=== PATIENT | male | born 1940 | race Caucasian/White ===

== ENCOUNTER → 2016-04-06 | Outpatient (CLI) | payer OTHER ==
[~2016-04-06] MED LIST: ALLO300T2 PO; AMLO-110 PO; ASPI81TA28 PO; ATEN-175 PO; DOCU-94 PO; DOXA-10 PO; FINA5TAB PO; HYDR-5688 PO; LACT10SO30 PO; LISI-787 PO; METF-383 PO; PRLSR20 PO; PSYL0.524 PO; SIMV5TAB2 PO; VNTHFA/IN INH; ZNTT/150 PO
== END | disposition home or self-care (01) ==
LOC: C.LABMFLN 10:00
PROVIDERS: ATTEND Family Medicine
DX: C61 Malignant neoplasm of prostate (principal)

== ENCOUNTER 2016-05-30 05:16 | Inpatient (IN) | payer OTHER ==
[2016-05-25 08:55] VITALS: BMI 27.0
[2016-05-30] VITALS (13 sets, daily range): BP systolic 123–151; BP diastolic 54–91; PULSE 62–93; TEMP 36.5–36.9; O2SAT 90–96; Ht 167.6 cm; Wt 76.4 kg
[~2016-05-30] VITALS: Ht 167.6 cm; Wt 76.4 kg
[~2016-05-30 05:16] MED LIST changes: -DOCU-94 PO; -HYDR-5688 PO
[2016-05-30] MEDS ORDERED: LACTATED RINGER'S 1000ML 1,000 ML IV SCH ×2 (06:00)
[2016-05-30] MEDS ORDERED: HEPARIN SOD 5000 UNIT/0.5 ML CARP SC SCH (06:00)
[2016-05-30] MEDS ORDERED: CEFAZOLIN 2000 MG/60 ML D5W IV SCH (06:00)
[2016-05-30] MEDS ORDERED: ONDANSETRON INJ 2 MG/ML 2 ML VIAL ONE (06:30)
[2016-05-30] MEDS ORDERED: FENTANYL CITRATE INJ 50 MCG/1 ML 2 ML VIAL ONE ×2 (06:30→07:30)
[2016-05-30] MEDS ORDERED: PROPOFOL IV EMULSION 10 MG/ML 20 ML VIAL IV ONE (06:30)
[2016-05-30] MEDS ORDERED: LIDOCAINE HCL 2% 2 ML VIAL (20MG/ML) ONE (06:30)
[2016-05-30] MEDS ORDERED: MIDAZOLAM HCL 1 MG/ML 2ML VIAL ONE (06:30)
[2016-05-30 06:43] LABS: BASO % 0.3 %; BASO ABS # 0.01 K/uL (0-0.2); IG% 0.3 %; LYMPH % 22.7 %; LYMPH ABS # 0.69 K/uL (1.2-3.4); MEAN CELL VOLUME 89.3 fL (80-100); MEAN CORPUSCULAR HEMOGLOBIN 29.8 pg (25-34); MEAN PLATELET VOLUME 8.8 fL (7.4-10.4); MONO % 11.5 %; NEUT % 63.2 %; PLATELET COUNT 126 K/uL (130-400); RED BLOOD COUNT 4.03 M/uL (4.7-6.1); WHITE BLOOD COUNT 3.04 K/uL (4.8-10.8)
[2016-05-30 06:46] LABS: COMPLETE YES; MEAN CORPUSCULAR HGB CONC 33.3 g/dl (32-36)
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
[2016-05-30] MEDS ORDERED: BUPIVACAINE/EPINEPHRINE 0.5% MPF 1:200,000 30 ML VIAL ONE (06:51)
[2016-05-30 07:05] LABS: CALCIUM 9.5 mg/dl (8.5-10.1); CREATININE 1.2 mg/dl (0.60-1.40); POTASSIUM 3.9 mmol/L (3.5-5.1)
[2016-05-30] MEDS ORDERED: ROCURONIUM BROMIDE 10 MG/ML 5 ML VIAL ONE (07:14)
[2016-05-30] MEDS ORDERED: GLYCOPYRROLATE INJ 0.2 MG/ML VIAL ONE (07:14)
[2016-05-30] MEDS ORDERED: NEOSTIGMINE METHYLSULFATE 5 MG/5 ML SYR ONE (07:14)
[2016-05-30] MEDS ORDERED: EpHEDrine SULFATE 50MG/5ML SYR ONE (07:14)
[2016-05-30] MEDS ORDERED: LARYING-O-JET KIT (LTA) EXT ONE ×2 (07:16)
[2016-05-30] MEDS ORDERED: METOPROLOL TARTRATE 1 MG/ML VIAL ONE (07:48)
[2016-05-30] MEDS ORDERED: HYDROmorphone INJ 1 MG/ML SYR IV PRN (08:00)
[2016-05-30] MEDS ORDERED: ONDANSETRON INJ 2 MG/ML 2 ML VIAL IV PRN (08:00)
[2016-05-30] MEDS ORDERED: EpHEDrine SULFATE INJ 50 MG/ML AMP IV PRN (08:00)
[2016-05-30] MEDS ORDERED: ATROPINE SULFATE 0.1 MG/ML 5ML SYR IV PRN (08:00)
[2016-05-30] MEDS ORDERED: DEXTROSE 50% 50 ML SYR IV PRN (08:45)
[2016-05-30] MEDS ORDERED: ALBUTEROL HFA 8 GM INHALER INH PRN (08:45)
[2016-05-30] MEDS ORDERED: GLUCAGON FOR INJ 1 MG VIAL SQ PRN (08:45)
[2016-05-30] MEDS ORDERED: MoRPHine SULFATE 2 MG/ML CARP IV PRN (08:45)
[2016-05-30] MEDS ORDERED: GLUCOSE 40% GEL 15 GM TUBE PO PRN (08:45)
[2016-05-30] MEDS ORDERED: GLUCOSE 10 TABS/TUBE PO PRN (08:45)
--- NOTE | 2016-05-30 08:50 | Medical Student: [facility] ---
Immediate Operative Summary Operative Date May 30, 2016. Pre-Operative Diagnosis R inguinal hernia Post-Operative Diagnosis Same as above Procedure(s) Performed Open repair of R inguinal hernia with plug and patch Surgeon Dr. Márquez Virology Teacher Surgeon(s) Clifford Boyce PA-C Estimated Blood Loss 15 cc Findings Massive R inguinal hernia with bowel in hernia sac. Large cord lipoma and enlarged spermatic cord. Specimens None Drains None Anesthesia GETA Complication(s) None Disposition Recovery Room / PACU (In stable condition)
[2016-05-30] MEDS: FENTANYL CITRATE INJ 50 MCG/1 ML 2 ML VIAL IV PRN ×2 (08:58→09:03)
--- NOTE | 2016-05-30 09:17 | Anesthesiology Progress Note ---
Anesthesia Post Op Note Date & Time May 30, 2016 at 09:17 Vital Signs Pain Intensity: 4 Vital Signs Past 12 Hours Date Time Temp Pulse Resp B/P Pulse Ox O2 Delivery O2 Flow Rate FiO2 05/30/16 09:05 72 15 130/72 97 Mask 10 05/30/16 08:55 70 21 125/68 100 Mask 10 05/30/16 08:45 36.1 86 19 152/123 96 Mask 10 05/30/16 05:48 36.7 70 20 141/81 96 Room Air Notes Mental Status: alert / awake / arousable, participated in evaluation Pt Amnestic to Procedure: Yes Nausea / Vomiting: adequately controlled Pain: adequately controlled Airway Patency, RR, SpO2: stable & adequate BP & HR: stable & adequate Hydration State: stable & adequate Anesthetic Complications: no major complications apparent
--- NOTE | 2016-05-30 10:15 | [facility] Operative Report ---
Operative Report Operative Date May 30, 2016. Pre-Operative Diagnosis Right Incarcerated Inguinal Hernia Post-Operative Diagnosis large incarcerated right inguinal hernia Procedure(s) Performed open right inguinal hernia repair with plug/patch mesh Surgeon Dr. Márquez [employer] Surgeon(s) Sulaiman Boyce PA-C Estimated Blood Loss 15 ml Findings large incarcerated indirect RIH Specimens A. Right Inguinal Hernia Sac Anesthesia get Complication(s) None Disposition Recovery Room / PACU I attest to the content of the Intraoperative Record and any orders documented therein. Any exceptions are noted below.
[2016-05-30] MEDS: AMLODIPINE BESYLATE 5 MG TAB PO SCH (10:31)
[2016-05-30] MEDS: LISINOPRIL/HCTZ 20/12.5MG TAB PO SCH ×2 (10:31→21:10)
[2016-05-30] MEDS: RANITIDINE HCL 150 MG TAB PO SCH ×2 (10:31→21:10)
[2016-05-30] MEDS: ALLOPURINOL 300 MG TAB PO SCH (10:32)
[2016-05-30] MEDS ORDERED: MoRPHine SULFATE 4 MG/ML 1 ML CARP\\VIAL ONE (10:33)
[2016-05-30] MEDS: LACTATED RINGER'S 1000ML 1,000 ML IV SCH ×2 (10:37→21:58)
[2016-05-30] MEDS ORDERED: IV FLUIDS COMPLETED PRN (10:45)
[2016-05-30] MEDS: INSULIN ASPART 100 UNITS/ML 3 ML PEN SC SCH ×3 (11:48→21:22)
--- NOTE | 2016-05-30 13:49 | OPERATIVE REPORT ---
DATE OF OPERATION: 05/30/2016 PREOPERATIVE DIAGNOSIS: Incarcerated right inguinal hernia. POSTOPERATIVE DIAGNOSIS: Large indirect right inguinal hernia with bowel incarceration. PROCEDURES: Open right inguinal hernia repair with plug and patch mesh technique. SURGEON: Dr. Márquez. FIELD KILN BURNER: Sulaiman Boyce PA-C. ESTIMATED BLOOD LOSS: 10 mL. COMPLICATIONS: No immediate. ANESTHESIA: General. The patient tolerated the procedure well. OPERATIVE NOTE: After informed consent was obtained, the patient was taken to the operating suite, placed in supine position. After successful intubation, the right groin was shaved and sterilely prepped and draped in usual fashion. We used a 10 blade scalpel to make a right inguinal incision. It was carried down through the soft tissue using electrocautery. The external oblique aponeurosis was skeletonized and incised with a fresh blade. Using Metzenbaum scissors, we extended this distally through the ring as well as for several centimeters proximally. Once in the inguinal canal, we had an obvious large hernia. We bluntly dissected the cord and cord structures away from surrounding tissue. Eventually I was able to get an index finger around the cord structures and elevated it off the pubic bone. Industry drain was placed around it to help mobilize and identify structures. We then tediously dissected through the cord and cord structures. There was a very large indirect sac with a large amount of small bowel incarcerated within it. Eventually we were able to peel this back away and separate it using small amounts of electrocautery as well as some blunt dissection. We extended it clear back to its neck. We were able to gently reduce the bowel back into the abdominal cavity. We then placed a clamp over the sac and excised it with electrocautery and then tied it off using 2-0 Vicryl tie. The sac then self-retracted back into the abdominal cavity quite nicely. The cord and cord structures other than some cremasteric muscles being stretched and some surrounding tissue edema was relatively normal. We did thoroughly irrigate the wound. There was no evidence of a direct defect. Because of the large size of the defect we did use a plug and patch technique. A polypropylene plug was placed into the defect. It was secured to surrounding musculature using 0 Ethibond in interrupted fashion. A keyholed piece of polypropylene mesh was also placed as an onlay. It was secured distally to Pedro's ligament laterally along the shelving portion of Poupart's ligament and medially along the midline musculature. The "arms" of the mesh were wrapped around behind the cord and cord structures and also secured to underlying muscle. The mesh laid tension free and did not appear to be impinging on the cord structures. We thoroughly irrigated the wound a final time. There was adequate hemostasis. We used some Marcaine around the edges of the mesh to help with postoperative analgesia. We then closed the external oblique aponeurosis with 2-0 Vicryl in a running fashion. Soft tissue was irrigated and closed using 3-0 Vicryl and 4-0 Monocryl for the skin. Some additional Marcaine was injected around the skin for postoperative pain control and Dermabond glue used as a dressing. The patient was then awakened, extubated, and transferred to recovery in stable condition. I attest to the content of the Intraoperative Record and any orders documented therein. Any exceptio ns are noted below.
[2016-05-30] MEDS: ONDANSETRON INJ 2 MG/ML 2 ML VIAL IV PRN (18:38)
[2016-05-30] MEDS: SIMVASTATIN 5 MG TAB PO SCH (21:10)
[2016-05-30] MEDS: DOXAZosin MESYLATE TAB 4 MG TAB PO SCH (21:10)
[2016-05-30] MEDS: FINASTERIDE 5 MG TAB PO SCH (21:10)
[2016-05-30] MEDS: HYDROCODONE/ACETAMOPHEN 5/325MG TAB PO PRN (22:01)
[2016-05-31] MEDS: HYDROCODONE/ACETAMOPHEN 5/325MG TAB PO PRN ×3 (03:28→16:07)
[2016-05-31 03:43] VITALS: BP 124/67; PULSE 86; TEMP 36.6; O2SAT 94
[2016-05-31 07:42] VITALS: BP 150/86; PULSE 79; TEMP 36.8; O2SAT 93
--- NOTE | 2016-05-31 07:59 | Surgery Progress Note ---
Surgery Progress Note Date of Service May 31, 2016. Subjective Post OP Day: 1 + complaints (right groin, RLQ pain), + diet (not much appetite), + nausea ( some last evening) Objective Vital Signs: Date Time Temp Pulse Resp B/P Pulse Ox O2 Delivery O2 Flow Rate FiO2 05/31/16 07:42 36.8 79 18 150/86 93 Room Air 05/31/16 03:43 36.6 86 16 124/67 94 Room Air 05/31/16 00:01 Room Air 05/30/16 23:40 36.8 92 16 131/72 96 Room Air 05/30/16 20:43 36.9 89 16 151/79 93 Room Air 05/30/16 20:00 93 Room Air 05/30/16 19:33 36.6 93 18 125/66 93 Room Air 05/30/16 15:27 36.8 86 19 150/87 95 Room Air 05/30/16 12:50 36.8 78 17 136/91 93 Room Air 05/30/16 11:50 36.6 77 16 129/71 95 Room Air 05/30/16 10:50 36.6 66 17 127/72 90 Room Air 05/30/16 10:20 36.5 62 17 129/54 92 Room Air 05/30/16 09:52 93 Room Air 05/30/16 09:50 93 Room Air 05/30/16 09:47 36.6 17 123/71 93 Room Air 05/30/16 09:35 67 22 120/80 95 Nasal Cannula 2 05/30/16 09:25 66 17 125/64 94 Nasal Cannula 2 05/30/16 09:15 36.3 72 19 107/50 96 Nasal Cannula 2 05/30/16 09:05 72 15 130/72 97 Mask 10 05/30/16 08:55 70 21 125/68 100 Mask 10 05/30/16 08:45 36.1 86 19 152/123 96 Mask 10 Abdomen: soft Incision(s): clean, ecchymosis Laboratory Results: Results Past 24 Hours Test 05/30/16 08:56 05/30/16 11:36 05/30/16 17:14 05/30/16 20:44 Range/Units Bedside Glucose 147 159 166 234 70-99 mg/dl Assessment & Plan s/p right inguinal hernia repair continue ice pack begin bowel regimen ambulate will keep here today
--- NOTE | 2016-05-31 08:02 | Anesthesiology Progress Note ---
Anesthesia Post Op Note Date & Time May 31, 2016 at 08:00 Vital Signs Pain Intensity: 7.0 Vital Signs Past 12 Hours Date Time Temp Pulse Resp B/P Pulse Ox O2 Delivery O2 Flow Rate FiO2 05/31/16 07:42 36.8 79 18 150/86 93 Room Air 05/31/16 03:43 36.6 86 16 124/67 94 Room Air 05/31/16 00:01 Room Air 05/30/16 23:40 36.8 92 16 131/72 96 Room Air 05/30/16 20:43 36.9 89 16 151/79 93 Room Air Notes Mental Status: alert / awake / arousable, participated in evaluation Pt Amnestic to Procedure: Yes Nausea / Vomiting: adequately controlled Pain: see Notes Airway Patency, RR, SpO2: stable & adequate BP & HR: stable & adequate Hydration State: stable & adequate Anesthetic Complications: no major complications apparent pt c/o 7/10 pain and of a sinus headache. RN made aware and to bring him po analgesic.
[2016-05-31] MEDS: ONDANSETRON INJ 2 MG/ML 2 ML VIAL IV PRN (08:18)
[2016-05-31] MEDS: POLYETHYLENE (MIRALAX) 17 GM PACK PO SCH (09:03)
[2016-05-31] MEDS: INSULIN ASPART 100 UNITS/ML 3 ML PEN SC SCH ×4 (09:03→21:31)
[2016-05-31] MEDS: DOCUSATE SODIUM 100 MG CAP PO SCH ×2 (09:04→21:20)
[2016-05-31] MEDS: LISINOPRIL/HCTZ 20/12.5MG TAB PO SCH ×2 (09:05→21:21)
[2016-05-31] MEDS: AMLODIPINE BESYLATE 5 MG TAB PO SCH (09:05)
[2016-05-31] MEDS: ALLOPURINOL 300 MG TAB PO SCH (09:05)
[2016-05-31] MEDS: RANITIDINE HCL 150 MG TAB PO SCH ×2 (09:06→21:20)
[2016-05-31] MEDS: LACTATED RINGER'S 1000ML 1,000 ML IV SCH (11:28)
[2016-05-31 12:06] VITALS: BP 132/82; PULSE 80; TEMP 36.3; O2SAT 95
[2016-05-31 15:05] VITALS: BP 109/71; PULSE 73; TEMP 36.9; O2SAT 95
[2016-05-31] MEDS: DOXAZosin MESYLATE TAB 4 MG TAB PO SCH (21:00)
[2016-05-31] MEDS: FINASTERIDE 5 MG TAB PO SCH (21:20)
[2016-05-31] MEDS: SIMVASTATIN 5 MG TAB PO SCH (21:21)
[2016-05-31 23:12] VITALS: BP 135/79; PULSE 79; TEMP 37.1; O2SAT 91
[2016-06-01] MEDS: LACTATED RINGER'S 1000ML 1,000 ML IV SCH ×2 (00:10→12:13)
[2016-06-01 07:18] VITALS: BP 124/72; PULSE 74; TEMP 36.9; O2SAT 95
[2016-06-01] MEDS: HYDROCODONE/ACETAMOPHEN 5/325MG TAB PO PRN ×3 (07:45→20:20)
[2016-06-01] MEDS: POLYETHYLENE (MIRALAX) 17 GM PACK PO SCH (07:54)
[2016-06-01] MEDS: RANITIDINE HCL 150 MG TAB PO SCH ×2 (08:47→20:42)
[2016-06-01] MEDS: ALLOPURINOL 300 MG TAB PO SCH (08:47)
[2016-06-01] MEDS: LISINOPRIL/HCTZ 20/12.5MG TAB PO SCH ×2 (08:47→20:41)
[2016-06-01] MEDS: DOCUSATE SODIUM 100 MG CAP PO SCH ×2 (08:47→20:41)
[2016-06-01] MEDS: AMLODIPINE BESYLATE 5 MG TAB PO SCH (08:47)
[2016-06-01] MEDS: INSULIN ASPART 100 UNITS/ML 3 ML PEN SC SCH ×4 (08:53→20:47)
--- NOTE | 2016-06-01 08:55 | Surgery Progress Note ---
Surgery Progress Note Date of Service Jun 01, 2016. Subjective Post OP Day: 2 + complaints (pain, groin swelling), No bowel movement, No nausea Objective Vital Signs: Date Time Temp Pulse Resp B/P Pulse Ox O2 Delivery O2 Flow Rate FiO2 06/01/16 08:00 Room Air 06/01/16 07:18 36.9 74 19 124/72 95 Room Air 06/01/16 00:08 Room Air 05/31/16 23:12 37.1 79 16 135/79 91 Room Air 05/31/16 16:00 Room Air 05/31/16 15:05 36.9 73 17 109/71 95 Room Air 05/31/16 12:06 36.3 80 16 132/82 95 Room Air Incision(s): clean, dry, ecchymosis Laboratory Results: Results Past 24 Hours Test 05/31/16 11:53 05/31/16 17:01 05/31/16 20:34 06/01/16 08:03 Range/Units Bedside Glucose 207 169 198 161 70-99 mg/dl Assessment & Plan s/p right inguinal hernia repair continue bowel regimen ambulate marginal at home, ? rehab heplock IV seen with Dr. Márquez
[2016-06-01 15:35] VITALS: BP 121/70; PULSE 70; TEMP 37; O2SAT 95
[2016-06-01 16:29] VITALS: BP 141/89; PULSE 96; TEMP 36.3; O2SAT 98
[2016-06-01] MEDS: DOXAZosin MESYLATE TAB 4 MG TAB PO SCH (20:40)
[2016-06-01] MEDS: FINASTERIDE 5 MG TAB PO SCH (20:41)
[2016-06-01] MEDS: SIMVASTATIN 5 MG TAB PO SCH (20:42)
[2016-06-01 23:22] VITALS: BP 106/67; PULSE 65; TEMP 36.8; O2SAT 94
[2016-06-02] MEDS ORDERED: NURSING VERBAL MED ORDER ONE (03:15)
[2016-06-02 06:47] VITALS: BP 111/67; PULSE 71; TEMP 37; O2SAT 91
[2016-06-02] MEDS: ALLOPURINOL 300 MG TAB PO SCH (07:50)
[2016-06-02] MEDS: LISINOPRIL/HCTZ 20/12.5MG TAB PO SCH ×2 (07:50→21:21)
[2016-06-02] MEDS: AMLODIPINE BESYLATE 5 MG TAB PO SCH (07:50)
[2016-06-02] MEDS: DOCUSATE SODIUM 100 MG CAP PO SCH ×2 (07:51→21:21)
[2016-06-02] MEDS: RANITIDINE HCL 150 MG TAB PO SCH ×2 (07:51→21:22)
[2016-06-02] MEDS: POLYETHYLENE (MIRALAX) 17 GM PACK PO SCH (07:51)
--- NOTE | 2016-06-02 08:28 | Surgery Progress Note ---
Surgery Progress Note Date of Service Jun 02, 2016. Subjective Post OP Day: 3 + pain controlled, No bowel movement, No nausea Objective Vital Signs: Date Time Temp Pulse Resp B/P Pulse Ox O2 Delivery O2 Flow Rate FiO2 06/02/16 06:47 37.0 71 16 111/67 91 Room Air 06/01/16 23:55 Room Air 06/01/16 23:22 36.8 65 18 106/67 94 Room Air 06/01/16 16:00 Room Air 06/01/16 15:35 37.0 70 18 121/70 95 Room Air Incision(s): clean, ecchymosis (groin) Laboratory Results: Results Past 24 Hours Test 06/01/16 11:27 06/01/16 16:46 06/01/16 20:38 06/02/16 08:09 Range/Units Bedside Glucose 210 207 201 177 70-99 mg/dl Assessment & Plan s/p right inguinal hernia repair stable post op ok for d/c when bed available
[2016-06-02] MEDS ORDERED: HYDR-5688 PO (08:30)
[2016-06-02] MEDS ORDERED: MAGNESIUM HYDROXIDE SUSP 30 ML UDC PO ONE (08:30)
[2016-06-02] MEDS ORDERED: DOCU-94 PO (08:30)
--- NOTE | 2016-06-02 08:32 | Discharge Instructions ---
Discharge Instructions Date of Service Jun 02, 2016. Admission Reason for Admission: Incarcerated Right Inguinal Hernia, Diabetes Discharge Discharge Diagnosis / Problem: right inguinal hernia repair Discharge Goals Goal(s): Increase independence Activity Recommendations Activity Level: Ambulates in room Therapies: Physical Therapy, Occupational Therapy Lifting Limitations: no more than 10 pounds Shower/Bathe: no limitations . Additional Information Patient informed of condition: Yes Advance Directives: No DNR: No Level of Care: Skilled Communicable Disease: No Prognosis: Improving Instructions / Follow-Up Instructions / Follow-Up Dr. Márquez in 1-2 weeks, [phone] Current Hospital Diet Patient's current hospital diet: Diabetes Type 2 Diet Discharge Diet Recommended Diet: Diabetes Type 2 Diet Procedures Procedures Performed: Right Open Incarcerated Inguinal Hernia Repair with Mesh Pending Studies Studies pending at discharge: no Medical Emergencies . Who to Call and When: Medical Emergencies: If at any time you feel your situation is an emergency, please call 911 immediately. . Non-Emergent Contact Non-Emergency issues call your: Surgeon Call Non-Emergent contact if: you have a fever, your pain is not controlled, wound has increased redness . . "Provider Documentation" section prepared by Clifford Boyce. Core Measure Problem Core Measures: None
[2016-06-02] MEDS: INSULIN ASPART 100 UNITS/ML 3 ML PEN SC SCH ×4 (09:11→21:32)
[2016-06-02 12:15] VITALS: O2SAT 91
[2016-06-02 15:00] VITALS: BP 110/72; PULSE 80; TEMP 36.6; O2SAT 94
[2016-06-02] MEDS: HYDROCODONE/ACETAMOPHEN 5/325MG TAB PO PRN ×3 (15:54→23:52)
[2016-06-02] MEDS: SIMVASTATIN 5 MG TAB PO SCH (21:21)
[2016-06-02] MEDS: DOXAZosin MESYLATE TAB 4 MG TAB PO SCH (21:21)
[2016-06-02] MEDS: FINASTERIDE 5 MG TAB PO SCH (21:22)
[2016-06-02 22:52] VITALS: BP 106/69; PULSE 76; TEMP 36.8; O2SAT 94
--- NOTE | 2016-06-03 07:42 | Surgery Progress Note ---
Surgery Progress Note Date of Service Jun 03, 2016. Subjective Post OP Day: 4 + bowel movement, No complaints Objective Vital Signs: Date Time Temp Pulse Resp B/P Pulse Ox O2 Delivery O2 Flow Rate FiO2 06/03/16 00:00 Room Air 06/02/16 22:52 36.8 76 18 106/69 94 Room Air 06/02/16 19:15 Room Air 06/02/16 15:00 36.6 80 16 110/72 94 Room Air 06/02/16 12:15 91 Room Air 06/02/16 08:00 Room Air Abdomen: non distended, soft Incision(s): ecchymosis Laboratory Results: Results Past 24 Hours Test 06/02/16 08:09 06/02/16 12:00 06/02/16 16:50 06/02/16 20:43 Range/Units Bedside Glucose 177 258 193 240 70-99 mg/dl Assessment & Plan s/p right inguinal hernia repair improved today ok for transfer when bed available
[2016-06-03 07:55] VITALS: BP 130/78; PULSE 73; TEMP 36.8; O2SAT 96
[2016-06-03 08:50] VITALS: BP 130/78; PULSE 73; TEMP 36.8; O2SAT 96
--- NOTE | 2016-06-03 08:54 | DISCHARGE SUMMARY ---
DATE OF DISCHARGE: 06/03/2016. PRIMARY DISCHARGE DIAGNOSIS: Large right indirect inguinal hernia with bowel incarceration. SECONDARY DISCHARGE DIAGNOSES: 1. Hypertension. 2. Diabetes. 3. GERD. 4. High cholesterol. PROCEDURE PERFORMED: Open right inguinal hernia repair with plug and patch mesh. HOSPITAL COURSE: The patient is a 75-year-old male admitted through same day and taken to the operating room for open repair of right inguinal hernia which contained part of the colon. The procedure was well tolerated. He was transferred to the surgical floor for observation and marginal independent status at home. On day 1 his pain control was marginal. He had limited appetite and limited mobility. He continued to makes slow progress over the next several days. MiraLax and Colace were added as he has some chronic constipation and also continued to require moderate amounts of narcotics. His bowels were moving by day 3 after given some milk of magnesia. His pain control was better. He was tolerating a regular diet. He is marginally independent at home, lives by himself, does not have family support. He was seen by medical social worker. Arrangements were made for transfer to [facility] for continued therapies and assistance until he can return home. On postoperative day 4, he was stable for transfer. DISCHARGE INSTRUCTIONS: Transfer to [facility]. Follow up with Dr. Márquez in 1-2 weeks. Continue therapies. Activity as tolerated which restriction no lifting greater than 10-15 pounds. He may shower without restriction. DISCHARGE MEDICATIONS: Colace 100 mg p.o. b.i.d. and Lewellen 1-2 tablets every 4 hours as needed. Continue his home medications albuterol 2-4 puffs q. 6 hours as needed, allopurinol 300 mg daily, Norvasc 5 mg daily, aspirin 81 mg daily, Tenormin 100 mg daily, Proscar 5 mg at bedtime, lactulose 2 tablespoons as needed, Zestoretic 20/12.5 one tablet b.i.d., Glucophage 850 mg b.i.d., Prilosec 20 mg daily, Metamucil 1 tablet t.i.d., Zantac 150 mg b.i.d., Zocor 5 mg daily, and doxazosin 8 mg at bedtime. MTDD
[2016-06-03] MEDS: POLYETHYLENE (MIRALAX) 17 GM PACK PO SCH (08:56)
[2016-06-03] MEDS: ALLOPURINOL 300 MG TAB PO SCH (08:58)
[2016-06-03] MEDS: RANITIDINE HCL 150 MG TAB PO SCH (08:58)
[2016-06-03] MEDS: DOCUSATE SODIUM 100 MG CAP PO SCH (08:58)
[2016-06-03] MEDS: AMLODIPINE BESYLATE 5 MG TAB PO SCH (08:59)
[2016-06-03] MEDS: LISINOPRIL/HCTZ 20/12.5MG TAB PO SCH (08:59)
[2016-06-03] MEDS: INSULIN ASPART 100 UNITS/ML 3 ML PEN SC SCH ×2 (09:03→12:05)
[2016-06-03 09:30] VITALS: O2SAT 96
[2016-06-03] MEDS: HYDROCODONE/ACETAMOPHEN 5/325MG TAB PO PRN (11:22)
== END 2016-06-03 12:28 | DRG 352 ==
LOC: ENRESERVDT → ENRESERVTM → C.ACU 05:16 → C.MSW 08:50 → OBSVTOIN 05-31 08:39
PROVIDERS: ADMIT Surgery; ATTEND Surgery
PROC: 0YU50JZ Supplement Right Inguinal Region with Synthetic Substitute, Open Approach (ICD-10-PCS; principal; 2016-05-30 07:00)
DX: K40.30 Unilateral inguinal hernia, with obstruction, without gangrene, not specified as recurrent (principal); E11.9 Type 2 diabetes mellitus without complications; Z79.82 Long term (current) use of aspirin; Z79.84 Long term (current) use of oral hypoglycemic drugs; Z79.899 Other long term (current) drug therapy; R35.0 Frequency of micturition; I10 Essential (primary) hypertension; E78.00 Pure hypercholesterolemia, unspecified; K21.9 Gastro-esophageal reflux disease without esophagitis; K59.00 Constipation, unspecified

== ENCOUNTER → 2016-07-12 | Outpatient (CLI) | payer OTHER ==
[~2016-07-12] MED LIST changes: +HYDR-5688 PO
== END | disposition home or self-care (01) ==
LOC: C.LABMFLN 10:04
PROVIDERS: ATTEND Family Medicine
DX: R19.7 Diarrhea, unspecified (principal)

== ENCOUNTER → 2016-09-07 | Outpatient (CLI) | payer OTHER ==
--- NOTE | 2016-09-07 15:29 | DIAGNOSTIC IMAGING REPORT ---
WHOLE BODY BONE SCAN HISTORY: Prostate carcinoma M54.5 Low back painC61 Prostate cancer RADIOTRACER: 26.1 mCi Tc-99m MDP STUDY/IMAGES: Planar anterior and posterior whole body imaging was performed 3 hours following the intravenous administration of radiotracer. COMPARISON: None. FINDINGS: Bilateral renal activity is present. Scattered increased activity throughout the cervical and thoracic regions consistent with degenerative change. Considerable degenerative activity of the knees bilaterally as well as shoulders. No abnormal soft tissue activity characteristics. IMPRESSION: Extensive degenerative change. No evidence for metastatic bone disease. Electronically signed by: Jaime Joel M.D. 09/07/2016 3:28 PM Dictated Date/Time: 09/07/2016 3:26 PM
== END | disposition home or self-care (01) ==
LOC: C.NUCL 11:07
PROVIDERS: ATTEND Family Medicine
DX: C61 Malignant neoplasm of prostate (principal); M54.5 Low back pain

== ENCOUNTER → 2016-09-26 | Outpatient (CLI) | payer OTHER ==
--- NOTE | 2016-09-30 13:49 | CODING QUERY MEDICAL NECESSITY ---
SUPPORTING DIAGNOSIS NEEDED A supporting diagnosis is required for the test/procedure performed on this patient in order for us to be reimbursed by the patient's insurance. Please provide a supporting diagnosis for the following test/procedure listed below next to the test name along with your signature. *If there is no additional diagnosis for this patient that would support the following test/procedure please document that below next to the test/procedure. Test(s)/Procedure(s) that require a supporting diagnosis: * DXA, BONE DENSITY AXIAL DIAGNOSIS: Provider Signature: Date: Thank you [facility] Interventions Information Management Once completed, please kindly fax back to [phone] For questions please call [phone]
== END | disposition home or self-care (01) ==
LOC: C.MAMM 14:10
PROVIDERS: ATTEND Family Medicine
DX: M85.80 Other specified disorders of bone density and structure, unspecified site (principal); M81.0 Age-related osteoporosis without current pathological fracture

== ENCOUNTER → 2016-09-28 | Outpatient (CLI) | payer OTHER ==
[2016-09-28 18:18] LABS: ALT/SGPT 30 U/L (12-78); BLOOD UREA NITROGEN 21 mg/dl (7-18); BUN/CREATININE RATIO 17.8 (10-20); CALCIUM 9.1 mg/dl (8.5-10.1); CARBON DIOXIDE 26 mmol/L (21-32); CHLORIDE 108 mmol/L (98-107); GLUCOSE 269 mg/dl (70-99); POTASSIUM 3.9 mmol/L (3.5-5.1); SODIUM 141 mmol/L (136-145)
[2016-09-28 18:29] LABS: PROSTATE SPECIFIC ANTIGEN < 0.010 ng/ml (0.000-4.000); THYROID STIMULATING HORMONE 0.935 uIu/ml (0.300-4.500)
[2016-09-29 07:08] LABS: ESTIMATED AVERAGE GLUCOSE 177 mg/dl; HA1C FLAG Normal (Normal)
== END | disposition home or self-care (01) ==
LOC: C.LABMFLN 12:12
PROVIDERS: ATTEND Urology
DX: M81.0 Age-related osteoporosis without current pathological fracture (principal); I10 Essential (primary) hypertension; E78.00 Pure hypercholesterolemia, unspecified; E11.9 Type 2 diabetes mellitus without complications; Z55.0 Illiteracy and low-level literacy; C61 Malignant neoplasm of prostate

== ENCOUNTER → 2017-03-27 | Outpatient (CLI) | payer OTHER ==
[~2017-03-27] MED LIST changes: -HYDR-5688 PO
[2017-03-27 13:30] LABS: HEMOGLOBIN A1C 8.2 % (4.5-5.6)
[2017-03-27 13:36] LABS: ALT/SGPT 23 U/L (12-78); BLOOD UREA NITROGEN 30 mg/dl (7-18); CALCIUM 9.7 mg/dl (8.5-10.1); CARBON DIOXIDE 29 mmol/L (21-32); CREATININE 1.13 mg/dl (0.60-1.40); GLUCOSE 189 mg/dl (70-99); POTASSIUM 4.4 mmol/L (3.5-5.1); SODIUM 135 mmol/L (136-145)
[2017-03-27 13:41] LABS: CHOLESTEROL 139 mg/dl (0-200); LDL CHOLESTEROL (DIRECT) 80 mg/dl
== END ==
LOC: C.LABMFLN 10:00
PROVIDERS: ATTEND Family Medicine
DX: I10 Essential (primary) hypertension (principal); E78.00 Pure hypercholesterolemia, unspecified; E11.9 Type 2 diabetes mellitus without complications; C61 Malignant neoplasm of prostate; E55.9 Vitamin D deficiency, unspecified

== ENCOUNTER → 2017-10-19 | Outpatient (CLI) | payer OTHER ==
[~2017-10-19] MED LIST changes: -AMLO-110 PO; +AMLO5TAB3 PO; +RANI150T85 PO; -ZNTT/150 PO
[2017-10-19 18:14] LABS: BASO % 0.2 %; BASO ABS # 0.01 K/uL (0-0.2); EOS ABS # 0.04 K/uL (0-0.5); HEMATOCRIT 40.6 % (42-52); HEMOGLOBIN 13.1 g/dL (14.0-18.0); LYMPH % 19.4 %; LYMPH ABS # 0.78 K/uL (1.2-3.4); MEAN CELL VOLUME 93.1 fL (80-100); MEAN CORPUSCULAR HGB CONC 32.3 g/dl (32-36); MEAN PLATELET VOLUME 9.3 fL (7.4-10.4); MONO ABS # 0.24 K/uL (0.11-0.59); NEUT % 73.4 %; NEUT ABS # 2.96 K/uL (1.4-6.5); PLATELET COUNT 167 K/uL (130-400); RED CELL DISTRIBUTION WIDTH CV 15.1 % (11.5-14.5); RED CELL DISTRIBUTION WIDTH SD 50.8 fL (36.4-46.3); WHITE BLOOD COUNT 4.03 K/uL (4.8-10.8)
[2017-10-19 18:38] LABS: BLOOD UREA NITROGEN 23 mg/dl (7-18); CALCIUM 9.2 mg/dl (8.5-10.1); CARBON DIOXIDE 26 mmol/L (21-32); GLUCOSE 150 mg/dl (70-99); POTASSIUM 4.1 mmol/L (3.5-5.1); SODIUM 142 mmol/L (136-145)
== END | disposition home or self-care (01) ==
LOC: C.LABMFLN 15:33
PROVIDERS: ATTEND Family Medicine
DX: Z00.00 Encounter for general adult medical examination without abnormal findings (principal); K59.00 Constipation, unspecified; I95.9 Hypotension, unspecified

== ENCOUNTER 2024-01-25 04:01 | Inpatient (IN) ==
--- NOTE | 2024-01-25 10:54 | History & Physical Report ---
Date of Service January 25, 2024 Assessment & Plan (1) Atrial fibrillation with RVR: Plan: Presented to [facility] with new onset A fib with RVR, rates in 120- 130s after experiencing weakness/lightheadedness at home. Transferred per patient's request. - Patient in NSR with rates in the 60s upon presentation to [facility] - No cardiac history or history of A fib previously, no history of TIA or stroke - At [facility]: > Head CT without acute process, CXR revealed cardiomegaly and mild central vascular congestion. No pericardial effusion noted on POCUS. > Labs unremarkable, including negative respiratory BioFire, TSH WNL, magnesium WNL, CK WNL, and no significant elecytrolyte abnormalities - Echocardiogram ordered, pending - Elevated BNP, though does not appear volume overloaded on exam. Suspect this was elevated in setting of A fib RVR, no signs of acute heart failure - Troponin mildly elevated at 43.9 on admission, suspect secondary to demand ischemia. Will repeat troponin to peak. EKG shows NSR in 60s, RBBB, no ischemic changes - UA ordered, pending. Of note, patient reports chronic dysuria with frequency - Orthostatic vital signs ordered - PT/OT evals ordered - [id number] score = 3, high risk of thromboembolic event - Continue metoprolol succinate 50 mg BID - Start Eliquis 5 mg BID. Discontinued aspirin 81 mg daily (2) Diabetes: Plan: Continue metformin 750 mg PO daily - Most recent A1c 7.3% on 09/26/23 - Repeat A1c with AM labs Plan Chronic stable issues: Hypertension: Continue lisinopril 30 mg daily, metoprolol 50 mg twice daily. ASPIRIN DISCONTINUED Hyperlipidemia: Continue atorvastatin 10 mg daily Cervical arthritis: Continue gabapentin 100 mg twice daily BPH/Prostate cancer: Continue tamsulosin 0.4 mg daily VTE PPx: Started Eliquis 5 mg BID CODE STATUS: DNR/DNI History of Present Illness Chief Complaint: A fib RVR, weakness Primary Care Provider: Juan Antonio Almonte MD Mr. Hooks is a pleasant 83-year-old male with PMH of hypertension, T2DM, hyperlipidemia, prostate cancer, BPH, asthma, PMR, gout. He presented to [facility] evening of 01/24 via EMS for new onset A fib with RVR. He reportedly felt weak yesterday, then when getting out of bed, he became lightheaded and lowered himself to the ground. He was too weak to get up on his own and called EMS. Per report from Jonathan Yañez, patient was in A fib with RVR in the 120- 130s on presentation. He had a head CT which revealed no acute process, CXR revealed cardiomegaly and mild central vascular congestion. No pericardial ef fusion noted on POCUS. He had an echocardiogram, report requested and still pending. Labs showed no significant electrolyte derangement or organ dysfunction. BNP elevated. He was started on heparin and Cardizem drip, after metoprolol IV was tried x 3 without improvement. Patient requested transfer to [facility]. At this time, patient denies chest pain, palpitations, orthopnea, dyspnea, cough, N/V/D, fever, chills, lightheadedness, dizziness, or numbness in his extremities. He reports chronic dysuria with frequency. He has converted to NSR in the 60s. He is very hard of hearing and had his friend/POA, Agapito, at bedside. No cardiac history to his knowledge and no history of A-fib either; he is on metoprolol as part of his anti-hypertensive regimen. Confirmed home medications and code status with patient and POA. Allergies Allergy/AdvReac Type Severity Reaction Status Date / Time doxazosin AdvReac dizziness Verified 01/02/24 13:32 Home Medications Medication Instructions Recorded Confirmed Type aspirin 81 mg tablet,delayed 81 mg PO DAILY #30 tabs 09/25/18 01/25/24 History release polyethylene glycol 3350 17 17 g PO DAILY #510 grams 09/27/22 01/25/24 Rx gram/dose oral powder (Miralax) atorvastatin 10 mg tablet See Rx Instructions .Route 07/27/23 01/25/24 Rx .COMPLEX #90 tabs amlodipine 2.5 mg tablet See Rx Instructions .Route 09/26/23 01/25/24 Rx .COMPLEX #90 tabs lisinopril 30 mg tablet 30 mg PO DAILY #90 tabs 09/26/23 01/25/24 Rx tamsulosin 0.4 mg capsule 0.4 mg PO DAILY #90 caps 10/16/23 01/25/24 Rx metoprolol succinate 100 mg 50 mg (1/2 x 100 mg) PO BID #90 11/06/23 01/25/24 Rx tablet,extended release 24 hr tabs gabapentin 100 mg capsule 100 mg PO BID #60 caps 01/02/24 01/25/24 Rx hydrocodone 7.5 mg-acetaminophen 1 tab PO Q6H PRN pain #120 tabs 01/03/24 01/25/24 Rx 325 mg tablet metformin 750 mg tablet,extended 750 mg PO DAILY 01/25/24 01/25/24 History release 24 hr Past Med/Surg History Problem List (Updated 01/25/24 @ 12:33 by Dariana Garcia PA-C) Atrial fibrillation with RVR Tinea unguium Prostate cancer Posterior tibial tendon dysfunction Posterior vitreous detachment of right eye Sinus tarsi syndrome of left ankle Dental caries 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 Dyspnea on exertion Dizziness Benign prostatic hyperplasia BPV (benign positional vertigo) Diabetic neuropathy Diabetes Polymyalgia rheumatica Osteoarthritis of left knee Asthma (Acute) Chronic gout (Acute) Hypercholesterolemia (Acute) Benign essential hypertension (Acute) Illiterate (Acute) Vitamin D deficiency (Acute) Inguinal hernia Medical History Left ankle pain GERD (gastroesophageal reflux disease) Surgical History History of inguinal hernia repair History of eye surgery Family History Mother Diabetes Hypertension Cancer Breast cancer Ovarian cancer Father Cancer Brother Cancer Denies family history of Prostate cancer Myocardial infarction Colorectal cancer Social History Smoking Status: Never smoker Second Hand Exposure: No; Do You Dip or Chew Tobacco: No; Hx Alcohol Use: No Hx Substance Use: No Preferred Language: Azeri Communication Ability: Effective Visual Impairment: Partially Limited Hearing Ability: Hard of Hearing Finance Mgr Required: No Beliefs That Will Affect Care: None marital status: Single Current Living Situation: Alone Current Living Situation Comment: [place] current occupational status: retired How many Children do You have: 0 Other Information That Helps Us Care for You: No Feels Safe at Home: Yes Safety Concerns: Feels Safe At This Time Childhood Exposure to Second-Hand Smoke: No caffeine: Yes during the past year weight has: remained stable Dental Care, Regularly: No Physical Activity Frequency: Does not Exercise Seatbelt Use: never Sunscreen Use: No Assistive Devices: Cane and Glasses Physical Exam Physical Exam: General: No acute distress, nondiaphoretic, well-developed, well-nourished. Very hard of hearing. Skin: The skin was without rashes, erythema, edema, or bruising. Cardiac: Normal sinus rhythm with rates in the 60s. Systolic murmur noted. Pulm: Breath sounds diminished at bases but otherwise clear to auscultation bilaterally without wheezes, rales or rhonchi. No respiratory distress. 99% on room air. Abdominal: Soft, nontender, nondistended. Bowel sounds present. : No suprapubic tenderness. No Rain. Neuro: A&O x3. No focal neurological deficits. Results & Data Results & Data Laboratory Results Reviewed CBC - unremarkable Reviewed coags Reviewed chemistries - elevated BNP and troponin Code Status & VTE Plan VTE Prophylaxis Plan VTE Prophylaxis will be ordered: Yes Supervising Physician Co-Signing Physician Notes I personally saw and examined the patient. I independently reviewed the labs, EKG, imaging, problem list, medication list, past medical history and family history. I verified all ramirez points and agree with Dariana Garcia PA-C with the following exceptions and/or additions: 83 year old male presents transfer for a. fib RVR and generalized weakness. No one sided weakness. Current back in NSR and feeling improved. O/E HS RRR, systolic murmur, Chest CTAB, Abdo SNT, no pedal edema A/P A. fib RVR - now back in NSR, stop diltiazem IV, monitor on telemetry overnight, place back on usual medications including metoprolol. TSH WNL at OOH. TTE. Radhaquis for anticoagulation. PG Care Time/CCT Total # of Minutes Spent Total Time Spent with Patient: Total time spent is greater than 50% in coordination of care (as documented) at patient's floor/unit and/or counseling patient: Coding Level of Care Code 28724 INT INP/OBS CARE 375MIN Diagnoses Atrial fibrillation with RVR I48.91 Type 2 diabetes mellitus without complication, without long-term current use of insulin E11.9 Diabetes mellitus complication status: without complication Diabetes mellitus intermodal truck driver insulin use: without intermodal truck driver use Diabetes mellitus type: type 2 (2) Diabetes Diabetes mellitus complication status: without complication Diabetes mellitus longterm insulin use: without longterm use Diabetes mellitus type: type 2 Qualified Code(s): E11.9 - Type 2 diabetes mellitus without complications
[2024-01-25] MEDS ORDERED: POLYETHYLENE (MIRALAX) 17 GM PACK PO PRN (11:45)
[2024-01-25 12:34] LABS: Basophils # (auto) 0.02 K/uL (0.00-0.20); Basophils % (auto) 0.3 %; Eosinophils # (auto) 0.03 K/uL (0.00-0.50); Eosinophils % (auto) 0.4 %; Hematocrit (blood only) 43.1 % (42.0-52.0); Hemoglobin 14.1 g/dl (14.0-18.0); Immature Granulocytes # (auto) 0.02 K/uL (0.01-0.20); Immature Granulocytes % (auto) 0.3 %; Lymphocytes # (auto) 0.92 K/uL (1.20-3.40); Lymphocytes % (auto) 13.4 %; Mean Corpuscular Hemoglobin 29.6 pg (25.0-34.0); Mean Corpuscular Hgb Conc 32.7 g/dL (32.0-36.0); Mean Corpuscular Volume 90.5 fL (80.0-100.0); Mean Platelet Volume 9.2 fL (9.4-12.4); Monocytes # (auto) 0.55 K/uL (0.11-0.59); Neutrophils # (auto) 5.31 K/uL (1.40-6.50); Neutrophils % (auto) 77.6 %; Platelet Count 184 K/uL (130-400); RDW Coefficient of Variation 14.2 % (11.5-14.5); RDW Standard Deviation 47.1 fL (36.4-46.3); Red Blood Count 4.76 M/uL (4.70-6.10); White Blood Count 6.85 K/ul (4.8-10.8)
[2024-01-25 12:49] LABS: Albumin Globulin Ratio 1.9 (0.9-2); BUN Creatinine Ratio 21.7 (10-20); Calcium 9.4 mg/dl (8.6-10.3); Creatinine Clr Calc Pharmacy 55.8 ml/min; Globulin 2.1 gm/dl (2.5-4.0); Magnesium 1.8 mg/dl (1.7-2.4); Total Protein 6.1 gm/dl (6.0-8.3)
[2024-01-25 12:56] LABS: Troponin I High Sensitivity 43.9 pg/ml (0-20)
[2024-01-25 13:02] LABS: INR 1.1 (0.9-1.1); Partial Thromboplastin Time 27 Seconds (21-31); Prothrombin Time 11.6 Seconds (9.0-12.0)
[2024-01-25] MEDS: ATORVASTATIN 10 MG TAB PO SCH (13:08)
[2024-01-25] MEDS: METOPROLOL SUCC 50MG EXT REL TAB PO SCH (13:08)
[2024-01-25] MEDS: metFORMIN HCL 500 MG TAB PO SCH (13:09)
[2024-01-25] MEDS: GABAPENTIN 100 MG CAP PO SCH (13:10)
[2024-01-25] MEDS: TAMSULOSIN HCL 0.4 MG CAP PO SCH (13:10)
[2024-01-25] MEDS: lisinopril 10 MG TAB PO SCH (13:10)
[2024-01-25] MEDS: ACETAMINOPHEN 325 MG TAB PO PRN (13:18)
[2024-01-25] MEDS: ONDANSETRON INJ 2 MG/ML 2 ML VIAL IV PRN (13:19)
[2024-01-25] MEDS: ASPIRIN 81 MG ECTAB PO SCH (14:19)
[2024-01-25 14:36] LABS: Appearance Urine Clear (Clear); Bacteria Urine Automated None Seen (None Seen); Bilirubin Urine Negative (Negative); Blood Urine Trace (Negative); Cast Urine Automated 0-2 /lpf (0-2); Color Urine Yellow; Epithelial Cell Urine Auto 0-2 /hpf (0-2); Glucose Urine UA Negative (Negative); Ketones Urine 1+ (Negative); Leukocyte Esterase Urine Negative (Negative); Nitrite Urine Negative (Negative); Protein Urine 1+ (Negative); RBC Urine Automated 0-2 /hpf (0-2); Specific Gravity Urine 1.019 (1.000-1.030); Urobilinogen Urine Negative (Negative); WBC Urine Automated 0-5 /hpf (0-5); pH Urine 5.5 (4.5-7.5)
--- NOTE | 2024-01-25 16:26 | Electrocardiogram Report ---
Test Reason : Blood Pressure : */* mmHG Vent. Rate : 63 BPM Atrial Rate : 63 BPM P-R Int : 182 ms QRS Dur : 130 ms QT Int : 446 ms P-R-T Axes : 78 -23 15 degrees QTcB Int : 456 ms Poor data quality, interpretation may be adversely affected Normal sinus rhythm Right bundle branch block Abnormal ECG When compared with ECG of 30-Aug-2021 16:15, Left anterior fascicular block is no longer Present Nonspecific T wave abnormality no longer evident in Anterior leads Confirmed by West Moore ([id number]) on 01/25/2024 4:26:14 PM Referred By: Eboni Moon Confirmed By: West Moore
[2024-01-25] MEDS: APIXABAN 5 MG TABLET PO SCH (20:42)
--- OUTSIDE RECORDS SUMMARY | 2024-01-26 02:36 | External Medical Summary ---
Author Name Unknown Address Unknown Organization K1F:LABORATORY [facility] - [place] [address] Laboratory Report Ordering Provider Test Date Status DENISSE GOMEZ 01/24/2024 23:46:21 Final Collect NOW Observation Date Value Abnormality Reference (Units ) Status Troponin T 01/24/2024 23:46:21 33 Above high normal < =22 (ng/L) Final Performing Location LABORATORY [facility] - [address] [place] [address]
--- OUTSIDE RECORDS SUMMARY | 2024-01-26 02:36 | External Medical Summary ---
Author Name Unknown Address Unknown Organization K1F:LABORATORY [facility] - [address] [place] [address] Laboratory Report Ordering Provider Test Date Status DENISSE GOMEZ 01/24/2024 23:46:21 Final Observation Date Value Abnormality Reference (Units ) Status WBC, Total 01/24/2024 23:46:21 10.72 4.00-10.80 (K/uL) Final RBC 01/24/2024 23:46:21 4.64 4.50-5.25 (M/uL) Final Hemoglobin 01/24/2024 23:46:21 13.9 Below low normal 14.0-16.8 (g/dL) Final HCT 01/24/2024 23:46:21 43.4 40.0-48.4 (%) Final MCV 01/24/2024 23:46:21 93.5 82.0-99.5 (fL) Final MCH 01/24/2024 23:46:21 30.0 27.0-34.0 (pg) Final MCHC 01/24/2024 23:46:21 32.0 32.0-36.0 (g/dL) Final RDW 01/24/2024 23:46:21 14.4 11.5-15.5 (%) Final Platelets 01/24/2024 23:46:21 175 140-400 (K/uL) Final MPV 01/24/2024 23:46:21 9.4 6.6-11.1 (fL) Final Nucleated erythrocytes/100 leukocytes [Ratio] in Blood by Automated count 01/24/2024 23:46:21 0 <=0 (/100 WBCs) Final Performing Location LABORATORY [facility] - [address] [place] [address]
--- OUTSIDE RECORDS SUMMARY | 2024-01-26 02:36 | External Medical Summary ---
Author Name Unknown Address Unknown Organization K1F:LABORATORY [facility] - [address] [facility] [place] [address] Laboratory Report Ordering Provider Test Date Status DENISSE GOMEZ 01/25/2024 03:33:34 Final ADMITTED patient Observation Date Value Abnormality Reference (Units ) Status Adenovirus DNA [Presence] in Nasopharynx by JORDIN with non-probe detection 01/25/2024 03:33:34 Negative Negative Final Human coronavirus 229E RNA [Presence] in Nasopharynx by JORDIN with non-probe detection 01/25/2024 03:33:34 Negative Negative Final Human coronavirus HKU1 RNA [Presence] in Nasopharynx by JORDIN with non-probe detection 01/25/2024 03:33:34 Negative Negative Final Human coronavirus NL63 RNA [Presence] in Nasopharynx by JORDIN with non-probe detection 01/25/2024 03:33:34 Negative Negative Final Human coronavirus OC43 RNA [Presence] in Nasopharynx by JORDIN with non-probe detection 01/25/2024 03:33:34 Negative Negative Final SARS-CoV-2 (COVID-19) RNA [Presence] in Nasopharynx by JORDIN with non-probe detection 01/25/2024 03:33:34 Negative Negative Final Human metapneumovirus RNA [Presence] in Nasopharynx by JORDIN with non-probe detection 01/25/2024 03:33:34 Negative Negative Final Rhinovirus+Enterovirus RNA [Presence] in Nasopharynx by JORDIN with non-probe detection 01/25/2024 03:33:34 Negative Negative Final Influenza virus A RNA [Presence] in Nasopharynx by JORDIN with non-probe detection 01/25/2024 03:33:34 Negative Negative Final Influenza virus B RNA [Presence] in Nasopharynx by JORDIN with non-probe detection 01/25/2024 03:33:34 Negative Negative Final Parainfluenza virus 1 RNA [Presence] in Nasopharynx by JORDIN with non-probe detection 01/25/2024 03:33:34 Negative Negative Final Parainfluenza virus 2 RNA [Presence] in Nasopharynx by JORDIN with non-probe detection 01/25/2024 03:33:34 Negative Negative Final Parainfluenza virus 3 RNA [Presence] in Nasopharynx by JORDIN with non-probe detection 01/25/2024 03:33:34 Negative Negative Final Parainfluenza virus 4 RNA [Presence] in Nasopharynx by JORDIN with non-probe detection 01/25/2024 03:33:34 Negative Negative Final Respiratory syncytial virus RNA [Presence] in Nasopharynx by JORDIN with non-probe detection 01/25/2024 03:33:34 Negative Negative Final Bordetella pertussis.pertussis toxin promoter region [Presence] in Nasopharynx by JORDIN with non-probe detection 01/25/2024 03:33:34 Negative Negative Final Chlamydophila pneumoniae DNA [Presence] in Nasopharynx by JORDIN with non-probe detection 01/25/2024 03:33:34 Negative Negative Final Mycoplasma pneumoniae DNA [Presence] in Nasopharynx by JORDIN with non-probe detection 01/25/2024 03:33:34 Negative Negative Final Bordetella parapertussis [id number] DNA [Presence] in Nasopharynx by JORDIN with non-probe detection 01/25/2024 03:33:34 Negative Negative Final The primers that detect Rhin ovirus may cross react with some Enterorviruses. The validation of bronchial specimens, tracheal aspirates, and throats for this assay was developed and performance characteristics determined by [employer]. The validation of alternate specimen types has not been cleared or approved by the U.S. Food and Drug Administration (FDA). It has been determined that such clearance or approval is not necessary. [facility] [address] [facility] [address]
--- OUTSIDE RECORDS SUMMARY | 2024-01-26 02:36 | External Medical Summary ---
Author Name Unknown Address Unknown Organization K1F:LABORATORY [facility] - [address] [place] [address] Laboratory Report Ordering Provider Test Date Status DENISSE GOMEZ 01/24/2024 23:46:21 Final Observation Date Value Abnormality Reference (Units ) Status CK 01/24/2024 23:46:21 80 39-308 (U/ L) Final Performing Location LABORATORY [facility] - [address] [place] [address]
--- OUTSIDE RECORDS SUMMARY | 2024-01-26 02:36 | External Medical Summary ---
Author Name Unknown Address Unknown Organization K1F:LABORATORY [facility] - [address] [facility] [place] [address] Laboratory Report Ordering Provider Test Date Status JAMES GOMEZDARRELL 01/25/2024 02:42:13 Final Observation Date Value Abnormality Reference (Units ) Status Color of Urine by Auto 01/25/2024 02:42:13 Yellow Light Yellow, Yellow, Dark Yellow Final Clarity, Urine 01/25/2024 02:42:13 Clear Clear Final Glucose [Mass/volume] in Urine by Automated test strip 01/25/2024 02:42:13 500 Abnormal Negative (mg/dL) Final Bilirubin.total [Presence] in Urine by Automated test strip 01/25/2024 02:42:13 Negative Negative Final Ketones [Mass/volume] in Urine by Automated test strip 01/25/2024 02:42:13 Trace Abnormal Negative (mg/dL) Final Specific gravity, Urine 01/25/2024 02:42:13 1.012 1.003-1.030 Final Hemoglobin [Presence] in Urine by Automated test strip 01/25/2024 02:42:13 Small Abnormal Negative Final pH, Urine 01/25/2024 02:42:13 6.0 5.0-7.5 (Units) Final Protein [Mass/volume] in Urine by Automated test strip 01/25/2024 02:42:13 Trace Abnormal Negative (mg/dL) Final Urobilinogen [Mass/volume] in Urine by Automated test strip 01/25/2024 02:42:13 0.2 0.2, 1.0 (mg/dL) Final Nitrite [Presence] in Urine by Automated test strip 01/25/2024 02:42:13 Negative Negative Final Leukocyte esterase [Presence] in Urine by Automated test strip 01/25/2024 02:42:13 Negative Negative Final RBC, Urine 01/25/2024 02:42:13 0-2 0-2 (/HPF) Final WBC, Urine 01/25/2024 02:42:13 0-2 0-2 (/HPF) Final Bacteria [#/area] in Urine sediment by Microscopy high power field 01/25/2024 02:42:13 0-25 0-25 (/HPF) Final [facility] 01/25/2024 02:42:13 Final Culture not indicated by uri nalysis results\X09\ Performing Location LABORATORY [address] [place] [address]
--- OUTSIDE RECORDS SUMMARY | 2024-01-26 02:36 | External Medical Summary ---
Author Name Unknown Address Unknown Organization K1F:LABORATORY [facility] - [address] [place] [address] Laboratory Report Ordering Provider Test Date Status DENISSE GOMEZ 01/25/2024 03:30:11 Final Warfarin Therapy
INR: 2 .0-3.0 conventional anticoagulation
INR: 2.5- 3.5 high intensity anticoagulation Observation Date Value Abnormality Reference (Units ) Status PT 01/25/2024 03:30:11 14.6 11.6-15.2 (seconds) Final INR 01/25/2024 03:30:11 1.1 0.8-1.2 Final Performing Location LABORATORY [facility] - [address] [place] [address]
--- OUTSIDE RECORDS SUMMARY | 2024-01-26 02:36 | External Medical Summary ---
Author Name Unknown Address Unknown Organization K1F:LABORATORY [facility] - [address] [facility]. [place] [address] Laboratory Report Ordering Provider Test Date Status DENISSE GOMEZ 01/24/2024 23:46:21 Final Observation Date Value Abnormality Reference (Units ) Status SYNC LEUKOCYTES IN BLOOD BY AUTOMATED COUNT 01/24/2024 23:46:21 10.72 4.00-10.80 (K/uL) Final Segs 01/24/2024 23:46:21 82.8 Above high normal 40.0-75.0 (%) Final Lymphs % 01/24/2024 23:46:21 10.4 Below low normal 18.0-42.0 (%) Final Monos 01/24/2024 23:46:21 5.1 1.0-11.0 (%) Final Eosinophils 01/24/2024 23:46:21 1.0 0.0-6.0 (%) Final Basos 01/24/2024 23:46:21 0.3 0.0-2.0 (%) Final Immature Granulocyte, Percent 01/24/2024 23:46:21 0.4 0.0-2.0 (%) Final Absolute Segs 01/24/2024 23:46:21 8.87 Above high normal 1.80-7.70 (K/uL) Final Lymphs, absolute 01/24/2024 23:46:21 1.12 1.00-4.80 (K/ul) Final Monos, Abs 01/24/2024 23:46:21 0.55 0.00-1.10 (K/uL) Final Eos, Abs 01/24/2024 23:46:21 0.11 0.00-0.70 (K/uL) Final Basos, Abs 01/24/2024 23:46:21 0.03 0.00-0.20 (K/uL) Final Immature Granulocytes, Number 01/24/2024 23:46:21 0.04 0.00-0.20 (K/uL) Final Performing Location LABORATORY [facility] - [address] [place] [address]
--- OUTSIDE RECORDS SUMMARY | 2024-01-26 02:36 | External Medical Summary ---
Author Name Unknown Address Unknown Organization K1F:LABORATORY [facility] - [address] [place] [address] Laboratory Report Ordering Provider Test Date Status DENISSE GOMEZ 01/24/2024 23:46:21 Final Observation Date Value Abnormality Reference (Units ) Status TSH 01/24/2024 23:46:21 2.31 0.27-4.20 (uIU/mL) Final Performing Location LABORATORY [facility] - [address] [place] [address]
--- OUTSIDE RECORDS SUMMARY | 2024-01-26 02:36 | External Medical Summary ---
Author Name Unknown Address Unknown Organization K1F:LABORATORY [facility] - [address] [place] [address] Laboratory Report Ordering Provider Test Date Status DENISSE GOMEZ 01/24/2024 23:46:21 Final Observation Date Value Abnormality Reference (Units ) Status Magnesium 01/24/2024 23:46:21 1.9 1.5-2.6 (m g/dL) Final Performing Location LABORATORY [facility] - [address] [place] [address]
--- OUTSIDE RECORDS SUMMARY | 2024-01-26 02:36 | External Medical Summary ---
Author Name Unknown Address Unknown Organization K1F:LABORATORY [facility] - [place] [address] Laboratory Report Ordering Provider Test Date Status DENISSE GOMEZ 01/25/2024 01:09:26 Final Collect 1 HOUR Observation Date Value Abnormality Reference (Units ) Status Troponin T 01/25/2024 01:09:26 36 Above high normal < =22 (ng/L) Final Performing Location LABORATORY [facility] - [address] [place] [address]
--- OUTSIDE RECORDS SUMMARY | 2024-01-26 02:36 | External Medical Summary ---
Author Name Unknown Address Unknown Organization K1F:LABORATORY [facility] - [address] [facility]. [place] [address] Laboratory Report Ordering Provider Test Date Status DENISSE GOMEZ 01/24/2024 23:46:21 Final Observation Date Value Abnormality Reference (Units ) Status BUN 01/24/2024 23:46:21 25 Above high normal 6-20 (mg/dL) Final Creatinine 01/24/2024 23:46:21 1.0 0.6-1.2 (mg/dL) Final Glomerular filtration rate/1.73 sq M.predicted [Volume Rate/Area] in Serum, Plasma or Blood by Creatinine-based formula (CKD-EPI) 01/24/2024 23:46:21 76 >=60 (mL/min) Final eGFR is calculated based on the CKD-EPI 2020 equation. Sodium 01/24/2024 23:46:21 141 135-146 (m mol/L) Final Potassium 01/24/2024 23:46:21 4.4 3.5-5.1 (m mol/L) Final Cl 01/24/2024 23:46:21 105 98-107 (mm ol/L) Final CO2 01/24/2024 23:46:21 23 22-32 (mmo l/L) Final Anion gap 01/24/2024 23:46:21 13 7-15 (mmol /L) Final Glucose 01/24/2024 23:46:21 237 Above high normal 70 -120 (mg/dL) Final Albumin 01/24/2024 23:46:21 4.0 3.8-5.0 (g /dL) Final AST (Aspartate aminotransferase) 01/24/2024 23:46:21 20 10-50 (U/L) Fin al Results may be falsely eleva suzan due to hemolysis. Alk Phos 01/24/2024 23:46:21 47 35-130 (U/ L) Final Bilirubin, Total 01/24/2024 23:46:21 0.5 <=1 .2 (mg/dL) Final Calcium 01/24/2024 23:46:21 9.4 8.4-10.2 ( mg/dL) Final Protein 01/24/2024 23:46:21 6.5 6.0-8.3 (g /dL) Final ALT (Alanine aminotransferase) 01/24/2024 23:46:21 10 10-50 (U/L) Final Performing Location LABORATORY [facility] - [facility] [address] [place] [address]
--- OUTSIDE RECORDS SUMMARY | 2024-01-26 02:36 | External Medical Summary ---
Author Name Unknown Address Unknown Organization K1F:LABORATORY [facility] - [address] [place] [address] Laboratory Report Ordering Provider Test Date Status DENISSE GOMEZ 01/25/2024 03:30:11 Final Observation Date Value Abnormality Reference (Units ) Status Heparin, unfractionated level 01/25/2024 03:30:11 <0.10 <0.10 (IU/mL) Final Unfractionated therapeutic r anges for Anti Xa activity:
For Cardiac/Neurologic treatment: 0.3 to 0.6 IU/mL.
For treatment of DVT or Pulmonary Embolism: 0.3 to 0.7 IU/mL. Performing Location LABORATORY [facility] - [address] [place] [address]
--- OUTSIDE RECORDS SUMMARY | 2024-01-26 02:36 | External Medical Summary ---
Author Name Unknown Address Unknown Organization K1F:LABORATORY [facility] - [address] [place] [address] Laboratory Report Ordering Provider Test Date Status DENISSE GOMEZ 01/24/2024 23:46:21 Final Observation Date Value Abnormality Reference (Units ) Status Phosphate 01/24/2024 23:46:21 2.8 2.5-4.8 (m g/dL) Final Performing Location LABORATORY [facility] - [address] [place] [address]
--- OUTSIDE RECORDS SUMMARY | 2024-01-26 02:36 | External Medical Summary ---
Author Name Unknown Address Unknown Organization K1F:LABORATORY [facility] - [address] [place] [address] Laboratory Report Ordering Provider Test Date Status DENISSE GOMEZ 01/25/2024 03:30:11 Final Anticoagulation may affect t esting. Refer to [employer] Test Catalog for a list of effects. Observation Date Value Abnormality Reference (Units ) Status aPTT panel - Platelet poor plasma 01/25/2024 03:30:11 28 21-38 (seconds) Final Performing Location LABORATORY [facility] - [address] [place] [address]
--- OUTSIDE RECORDS SUMMARY | 2024-01-26 02:36 | External Medical Summary ---
Author Name Unknown Address Unknown Organization K1F:LABORATORY [facility] - [address] [address] Laboratory Report Ordering Provider Test Date Status DENISSE GOMEZ 01/25/2024 01:09:26 Final Exclude Heart Failure: <300 pg/mL
Diagnose Heart Failure:
Age <50 yr: >450 pg/mL
50-75 yr: >900 pg/mL
>75 yr: >1800 pg/mL
GFR is 30-59 mL/min: >1200 pg/mL or Age- adjusted values
GFR <30 mL/min: do not use, not reliable

Prognostic threshold: 1000 pg/mL Observation Date Value Abnormality Reference (Units ) Status BNP, Pro-hormone 01/25/2024 01:09:26 4785 Above high no rmal <300 (pg/mL) Final Performing Location LABORATORY [facility] - [address] [address]
--- OUTSIDE RECORDS SUMMARY | 2024-01-26 02:36 | External Medical Summary ---
Author Name Unknown Address Unknown Organization K1F:LABORATORY [facility] - [address] [address] Laboratory Report Ordering Provider Test Date Status DENISSE GOMEZ 01/24/2024 23:46:21 Final Warfarin Therapy
INR: 2 .0-3.0 conventional anticoagulation
INR: 2.5- 3.5 high intensity anticoagulation Observation Date Value Abnormality Reference (Units ) Status PT 01/24/2024 23:46:21 13.8 11.6-15.2 (seconds) Final INR 01/24/2024 23:46:21 1.1 0.8-1.2 Final Performing Location LABORATORY [facility] - [address] [address]
--- OUTSIDE RECORDS SUMMARY | 2024-01-26 02:36 | External Medical Summary ---
Author Name Unknown Address Unknown Organization K1F:LABORATORY [facility] - [address] [address] Laboratory Report Ordering Provider Test Date Status DENISSE GOMEZ 01/25/2024 03:30:11 Final Observation Date Value Abnormality Reference (Units ) Status WBC, Total 01/25/2024 03:30:11 9.13 4.00-10.80 (K/uL) Final RBC 01/25/2024 03:30:11 4.82 4.50-5.25 (M/uL) Final Hemoglobin 01/25/2024 03:30:11 14.6 14.0-16.8 (g/dL) Final HCT 01/25/2024 03:30:11 44.3 40.0-48.4 (%) Final MCV 01/25/2024 03:30:11 91.9 82.0-99.5 (fL) Final MCH 01/25/2024 03:30:11 30.3 27.0-34.0 (pg) Final MCHC 01/25/2024 03:30:11 33.0 32.0-36.0 (g/dL) Final RDW 01/25/2024 03:30:11 14.4 11.5-15.5 (%) Final Platelets 01/25/2024 03:30:11 172 140-400 (K/uL) Final MPV 01/25/2024 03:30:11 8.8 6.6-11.1 (fL) Final Nucleated erythrocytes/100 leukocytes [Ratio] in Blood by Automated count 01/25/2024 03:30:11 0 <=0 (/100 WBCs) Final Performing Location LABORATORY [facility] - [address] [address]
[2024-01-26] MEDS: dilTIAZem HCl 5 MG/ML 5 ML VIAL IV STA ×2 (04:26→05:21)
[2024-01-26] MEDS: MAGNESIUM SULFATE / D5W 1 GM/100 ML BAG IV SCH (04:45)
--- NOTE | 2024-01-26 05:39 | Communication Note ---
Date of Service: January 26, 2024 Per chart review patient received multiple rate controlling medications prior to arrival to [facility]. Was given 3 doses of Lopressor without improvement. He was then started on a dilt drip and converted to sinus. He requested transfer to [facility] from [place]. Patient was in sinus rhythm upon admission and no medication changes were made. Was notified by nursing that patient had flipped back into a fib with RVR with rates in the 130s. Gave Mg for a goal > 2.0. K > 4. Gave dilt 5 mg x 2. Rates still elevated 100s-120s. Started dilt gtt without bolus. Goal HR < 115. Resident Activity Tracking Resident Involvement: Resident Care Provided Care Provided: Adult Hospital Medicine
[2024-01-26] MEDS ORDERED: STAT IV Infusion **Titration per Protocol STA (06:13)
[2024-01-26] MEDS: dilTIAZem HCL 125 MG in DEXTROSE 5% 100 ML IV SCH (07:08)
[2024-01-26 07:57] LABS: Hematocrit (blood only) 45.7 % (42.0-52.0); Hemoglobin 14.8 g/dl (14.0-18.0); Mean Corpuscular Hemoglobin 29.6 pg (25.0-34.0); Mean Corpuscular Hgb Conc 32.4 g/dL (32.0-36.0); Mean Corpuscular Volume 91.4 fL (80.0-100.0); Mean Platelet Volume 9.4 fL (9.4-12.4); Platelet Count 192 K/uL (130-400); RDW Coefficient of Variation 14.3 % (11.5-14.5); White Blood Count 6.93 K/ul (4.8-10.8)
[2024-01-26 08:11] LABS: BUN Creatinine Ratio 24.4 (10-20); Calcium 9.6 mg/dl (8.6-10.3); Creatinine Clr Calc Pharmacy 41.2 ml/min
[2024-01-26 09:58] LABS: Estimated Average Glucose 169 mg/dl; Hemoglobin A1C 7.5 % (4.5-5.6)
--- NOTE | 2024-01-26 12:33 | XCELERA ---
[id number]
--- NOTE | 2024-01-26 15:04 | Cardiology Consultation ---
Date of Consultation January 26, 2024 Assessment & Plan (1) Atrial fibrillation with RVR: (2) Moderate to severe aortic stenosis: (3) Mitral regurgitation: Plan 83-year-old man with new onset atrial fibrillation with rapid ventricular response, etiology uncertain, most likely advanced age, history of hypertension, and significant valvular disease are predisposing factors. Was placed on metoprolol but had breakthrough atrial fibrillation, agree with diltiazem infusion, will initiate oral diltiazem to allow tapering off infusion when able. Will administer short acting diltiazem 60 mg mg every 8 hours, can change to long-acting preparation prior to discharge. Would continue metoprolol, since he has occasional very high rates might benefit from dual negative chronotropic therapy. As noted, no readily correctable underlying factors. Would ensure that a TSH was obtained at [place] and was normal (normal value noted from earlier this year). Agree with apixaban 5 mg twice daily for anticoagulation. His age is over 80 years old but his weight is just over 60 kg, so full dose apixaban seems appropriate. He remains mildly hypertensive, if the multiple negative chronotropic agents do result in a significant blood pressure decline, could hold lisinopril. 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 Valvular disease difficult to quantify on echocardiogram, suspect moderate to severe aortic stenosis and indeterminate mitral regurgitation (loud murmur, mitral annular calcification precludes definitive assessment). Patient expressed to me that "he would not want a new valve" even though I did not raise this issue but only mentioned that he has a murmur. Since he is tolerating atrial fibrillation with rapid rate well without overt CHF or myocardial ischemia, reasonable to continue conservative management of his valvular disease. If in the future he would acquiesce to more aggressive care, would recommend transesophageal echocardiogram to further evaluate both aortic and mitral valves. Dr. Bach will be rounding for the weekend, will ask him to check in on the patient tomorrow. History of Present Illness Reason for Consultation: a fib rvr Requesting Physician: Jimmy Fernández Attending Physician: Jimmy Fernández History of Present Illness 83-year-old man with multiple medical problems but no cardiac history prior to presentation to [facility] 01/25/2024 with atrial fibrillation with rapid ventricular response. He apparently felt profoundly weak and was found by his friend with medical power of staff attorney, when attempting to get out of bed he became lightheaded and lowered himself to the ground and was too weak to get up. Evaluation at [facility] showed A-fib with ventricular rate 120-130 bpm range, mild central vascular congestion on chest x-ray, elevated BNP, troponin minimally elevated. He denied any chest pain, dyspnea, subjective palpitations, lightheadedness, presyncope, or syncope, noting only profound weakness. At patient's request, [facility] he was initially in sinus rhythm, however earlier this morning he reverted to atrial fibrillation with rapid ventricular response, asymptomatic while resting in bed. Telemetry here showed sinus rhythm in the 60 bpm range, followed by atrial fibrillation with rate generally in the 120 bpm range, but with rates up to 150 bpm. Allergies Allergy/AdvReac Type Severity Reaction Status Date / Time doxazosin AdvReac dizziness Verified 01/02/24 13:32 Home Medications Medication Instructions Recorded Confirmed Type aspirin 81 mg tablet,delayed 81 mg PO DAILY #30 tabs 09/25/18 01/25/24 History release polyethylene glycol 3350 17 17 g PO DAILY #510 grams 09/27/22 01/25/24 Rx gram/dose oral powder (Miralax) atorvastatin 10 mg tablet See Rx Instructions .Route 07/27/23 01/25/24 Rx .COMPLEX #90 tabs amlodipine 2.5 mg tablet See Rx Instructions .Route 09/26/23 01/25/24 Rx .COMPLEX #90 tabs lisinopril 30 mg tablet 30 mg PO DAILY #90 tabs 09/26/23 01/25/24 Rx tamsulosin 0.4 mg capsule 0.4 mg PO DAILY #90 caps 10/16/23 01/25/24 Rx metoprolol succinate 100 mg 50 mg (1/2 x 100 mg) PO BID #90 11/06/23 01/25/24 Rx tablet,extended release 24 hr tabs gabapentin 100 mg capsule 100 mg PO BID #60 caps 01/02/24 01/25/24 Rx hydrocodone 7.5 mg-acetaminophen 1 tab PO Q6H PRN pain #120 tabs 01/03/24 01/25/24 Rx 325 mg tablet metformin 750 mg tablet,extended 750 mg PO DAILY 01/25/24 01/25/24 History release 24 hr Patient History Medical History Left ankle pain GERD (gastroesophageal reflux disease) Surgical History History of inguinal hernia repair History of eye surgery Family History Mother Diabetes Hypertension Cancer Breast cancer Ovarian cancer Father Cancer Brother Cancer Denies family history of Prostate cancer Myocardial infarction Colorectal cancer Social History Smoking Status: Never smoker Second Hand Exposure: No; Do You Dip or Chew Tobacco: No; Hx Alcohol Use: No Hx Substance Use: No Preferred Language: Citizen Of [place] Communication Ability: Effective Visual Impairment: Partially Limited Hearing Ability: Hard of Hearing Discovery Guide Required: No Beliefs That Will Affect Care: None marital status: Single Current Living Situation: Alone Current Living Situation Comment: [place] current occupational status: retired How many Children do You have: 0 Other Information That Helps Us Care for You: No Feels Safe at Home: Yes Safety Concerns: Feels Safe At This Time Childhood Exposure to Second-Hand Smoke: No caffeine: Yes during the past year weight has: remained stable Dental Care, Regularly: No Physical Activity Frequency: Does not Exercise Seatbelt Use: never Sunscreen Use: No Assistive Devices: Cane Physical Exam Physical Exam: Early white male, hard of hearing, but in no apparent distress. BP moderately hypertensive. Pulse 120 bpm and irregular. Respirations 18 and unlabored. Skin: no ecchymoses or generalized lesions. HEENT: unremarkable. Neck: JVP at the clavicle at 90 degrees, no carotid bruits. Lungs: Mildly decreased breath sounds but clear. Cardiac: Irregular/tachycardic rhythm, reduced but audible aortic closure sound, 3/6 systolic crescendo/decrescendo murmur right upper sternal border radiating faintly to the carotids, 4/6 apical systolic murmur rating to the axilla, no diastolic murmur. Abdomen: benign. Extremities: no edema, pulses intact. Neurologic: normal affect, hard of hearing, limited insight but generally normal conversation, grossly nonfocal. Results & Data Vital Signs (Past 12 Hours) Vital Signs Temp Pulse Pulse Resp BP BP Pulse Ox 01/26/24 11:28 97.5 F L 70 19 178/87 H 100 01/26/24 10:40 01/26/24 07:11 97.5 F L 128 H 19 133/71 96 01/26/24 07:05 133/71 01/26/24 07:00 112 H 01/26/24 05:11 133/93 01/26/24 04:23 97.3 F L 136 H 18 155/92 H 98 01/26/24 03:15 97.9 F 62 16 172/95 H 98 O2 Del Method O2 Del Method 01/26/24 11:28 Room Air 01/26/24 10:40 Room Air 01/26/24 07:11 Room Air 01/26/24 07:05 01/26/24 07:00 01/26/24 05:11 01/26/24 04:23 Room Air 01/26/24 03:15 Room Air Laboratory Results Normal electrolytes, BUN 30, creatinine 1.23. Magnesium 1.8. Troponin 43.9 and 38.4. BNP 549. Normal CBC. Diagnostic Findings ECG on admission showed sinus rhythm at 63 bpm with right bundle branch block. Compared with 08/30/2021 study, LAFB no longer present, nonspecific T wave abnormality no longer evident in anterior leads. Echocardiogram today showed EF 50 to 55% with severe LVH, probable moderate to severe aortic stenosis (Doppler felt unreliable), mild mitral regurgitation with severely dilated left atrium, mild pulmonary hypertension. Of note there was significant mitral annular calcification which may preclude definitive assessment of severity of mitral regurgitation. Chest x-ray with cardiomegaly and mild central vascular congestion. Carotid Doppler 2021 showed no significant stenoses. PG Care Time/CCT Total # of Minutes Spent Total Time Spent with Patient: Total time spent is greater than 50% in coordination of care (as documented) at patient's floor/unit and/or counseling patient: Coding Level of Care Code 66030 IN/OBS CONSULT LVL 5,80M Diagnoses Atrial fibrillation with RVR I48.91 Moderate to severe aortic stenosis I35.0 Mitral regurgitation I34.0
[2024-01-26] MEDS: dilTIAZem HCL 30 MG TAB PO SCH (19:35)
[2024-01-26] MEDS ORDERED: Nursing to Pharmacy Communication SCH (19:45)
[2024-01-26] MEDS ORDERED: dilTIAZem HCL 30 MG TAB PO SCH (22:00)
--- NOTE | 2024-01-26 23:28 | Hospitalist Progress Note ---
Date of Service January 26, 2024 Assessment & Plan (1) Atrial fibrillation with RVR: Plan: Presented to [facility] with new onset A fib with RVR, rates in 120- 130s after experiencing weakness/lightheadedness at home. Transferred per patient's request. - Patient in NSR with rates in the 60s upon presentation to [facility] - No cardiac history or history of A fib previously, no history of TIA or stroke - At [facility]: > Head CT without acute process, CXR revealed cardiomegaly and mild central vascular congestion. No pericardial effusion noted on POCUS. > Labs unremarkable, including negative respiratory BioFire, TSH WNL, magnesium WNL, CK WNL, and no significant elecytrolyte abnormalities - Echocardiogram ordered, pending - Elevated BNP, though does not appear volume overloaded on exam. Suspect this was elevated in setting of A fib RVR, no signs of acute heart failure - Troponin mildly elevated at 43.9 on admission, suspect secondary to demand ischemia. Will repeat troponin to peak. EKG shows NSR in 60s, RBBB, no ischemic changes - UA ordered, pending. Of note, patient reports chronic dysuria with frequency - Orthostatic vital signs ordered - PT/OT evals ordered - [id number] score = 3, high risk of thromboembolic event - Continue metoprolol succinate 50 mg BID - Start Eliquis 5 mg BID. Discontinued aspirin 81 mg daily Transitioned to oral diltiazem. If remains in sinus on 01/26, will discharge ondiltiazem and metoprolol. (2) Diabetes: Plan: Continue metformin 750 mg PO daily - Most recent A1c 7.3% on 09/26/23 - Repeat A1c with AM labs Plan Chronic stable issues: Hypertension: Continue lisinopril 30 mg daily, metoprolol 50 mg twice daily. ASPIRIN DISCONTINUED Hyperlipidemia: Continue atorvastatin 10 mg daily Cervical arthritis: Continue gabapentin 100 mg twice daily BPH/Prostate cancer: Continue tamsulosin 0.4 mg daily VTE PPx: Started Eliquis 5 mg BID CODE STATUS: DNR/DNI Admission and Anticipated Discharge Date Admission Date: January 25, 2024 Subjective Hard of hearing. Patient reports feeling well. Review of Systems Review of Systems: All systems reviewed & are unremarkable except as noted in HPI & below Physical Exam Physical Exam: General: NAD. Very hard of hearing. Skin: The skin was without rashes, erythema, edema, or bruising. Cardiac: Normal sinus rhythm with rates in the 60s. Systolic murmur noted. Pulm: CTA B/L Abdominal: Soft, nontender, nondistended. Bowel sounds present. : No suprapubic tenderness. No Rain. Neuro: A&O x3. No focal neurological deficits. Results & Data Results & Data Vital Signs (Past 12 Hours) Vital Signs Temp Pulse Resp BP BP Pulse Ox O2 Del Method 01/26/24 22:37 36.5 C 64 16 145/73 H 95 Room Air 01/26/24 19:23 36.4 C L 67 16 175/91 H 99 Room Air 01/26/24 15:37 36.8 C 65 19 126/57 L 97 Room Air PG Care Time/CCT Total # of Minutes Spent Total Time Spent with Patient: Total time spent is greater than 50% in coordination of care (as documented) at patient's floor/unit and/or counseling patient: Coding Level of Care Code 10967 SUB INP/OBS CARE 2/35MIN Diagnoses Atrial fibrillation with RVR I48.91 Type 2 diabetes mellitus without complication, without long-term current use of insulin E11.9 Diabetes mellitus complication status: without complication Diabetes mellitus penitentiary insulin use: without terminal clerk use Diabetes mellitus type: type 2 (2) Diabetes Diabetes mellitus complication status: without complication Diabetes mellitus terminal clerk insulin use: without penitentiary use Diabetes mellitus type: type 2 Qualified Code(s): E11.9 - Type 2 diabetes mellitus without complications
[2024-01-27 08:05] VITALS: PULSE 61; RESP 18; TEMP 97.5; O2SAT 98
[2024-01-27 09:43] VITALS: BP 126/57
--- NOTE | 2024-01-27 09:44 | Discharge Summary ---
Discharge Summary Date of Service January 27, 2024 Principal Dx & Hospital Course #1 = Principal Diagnosis (1) Atrial fibrillation with RVR: Presented to [facility] with new onset A fib with RVR, rates in 120- 130s after experiencing weakness/lightheadedness at home. Transferred per patient's request. - Patient in NSR with rates in the 60s upon presentation to [facility] - No cardiac history or history of A fib previously, no history of TIA or stroke - At [facility]: > Head CT without acute process, CXR revealed cardiomegaly and mild central vascular congestion. No pericardial effusion noted on POCUS. > Labs unremarkable, including negative respiratory BioFire, TSH WNL, magnesium WNL, CK WNL, and no significant elecytrolyte abnormalities - Echocardiogram (01/26/2024, 6:58am): LV EF 50-55%, LA severely dilated; (1) severe concentric LVH, (2) moderate-severe aortic stenosis, (3) mild-moderate TR with RVSP 30-40 mm Hg, consistent with new mild pulmonary HTN; these 3 findings are new compared to 09/24/2021 TTE (as per CARDS Dr. West Moore) - Elevated BNP, though does not appear volume overloaded on exam. Suspect this was elevated in setting of A fib RVR, no signs of acute heart failure - Troponin mildly elevated at 43.9 on admission, suspect secondary to demand ischemia. Will repeat troponin to peak. EKG shows NSR in 60s, RBBB, no ischemic changes - Of note, patient reported chronic dysuria with frequency; subsequent UA (01/25/2024, 1:33pm): LE-, nitrite-. Hence, acute cystitis/UTI is not present. - Orthostatic vital signs reveal no orthostasis. - PT/OT evaluations (01/26/2024, 2:16pm, PT Ms. Leatha Schumacher; OT Ms. Deirdre Oliva) both resulted in recommendations for D/C to rehab (combined total of 3 hours per day), but patient emphatically refused to go to SNF for short-term rehab as recommended by PT Ms. Leatha Schumacher and OT Ms. Deirdre Oliva. Hence, patient was discharged back to his home alone, as requested by the patient himself on 01/27/2024. - [id number] score = 3, high risk of thromboembolic event - Patient continued to receive rate-control with his home-scheduled metoprolol succinate 50 mg BID and his hospital-started diltiazem infusion (01/26/2024, 6:15am), followed by diltiazem 30mg PO q8 (01/26/2024, 4:00pm) while in [facility]. Patient will continue with his home-scheduled metoprolol succinate 50 mg PO bid and his hospital-started diltizem 30 mg PO q8 on hospital discharge home on 01/27/2024. To this end, patient's [id number], [id number], [place] [address], received an electronic prescription for diltiazem 30 mg PO q8, #90 tablets, no refills, on 01/27/2024, prior to hospital discharge back to patient's home alone on 01/27/2024, 9:57am. - Patient received Eliquis 5 mg PO bid while aspirin 81 mg PO daily was discontinued while patient remained in [facility]. Patient will continue with his home-scheduled Eliquis 5 mg PO bid on hospital discharge back to patient's home alone on 01/27/2024, 9:57am. (2) Diabetes: Long-term glycemic control is modest with HbA1c 7.5% (01/26/2024, 7:20am). cf., fingerstick glucose 189 mg/dL (01/26/2024, 8:27am). cf., fingerstick glucose 249 mg/dL (01/26/2024, 11:50am). cf., fingerstick glucose 129 mg/dL (01/26/2024, 4:42pm). Patient was maintained on a carbohydrate consistent diet and his home-scheduled metformin 750 mg PO daily while in [facility] with no need for insulin sliding scale qac + qhs while in [facility]. Hence, patient will continue with a carbohydrate consistent diet and his home- scheduled metformin 750 mg PO daily on hospital discharge back to his home alone on 01/27/2024, 9:57am. Plan Chronic stable issues: Hypertension: Well-controlled with discharge BP 145/84 (01/27/2024, 9:41am) on home-scheduled lisinopril 30 mg PO daily, home-scheduled metoprolol 50 mg PO bid, and hospital-started diltiazem infusion (01/26/2024, 6:15am), followed by diltiazem 30mg PO q8 (01/26/2024, 4:00pm) while in [facility]. Of note, diltiazem infusion and diltiazem 30 mg PO q8 were NOT prescribed to improve patient's blood pressure, but rather, to mitigate AFIB with RVR. However, diltiazem infusion and diltiazem 30mg PO q8 also function as anti-HTN agents, and as such, are included here in the control of patient's HTN, which remains well- controlled. cf., normal systolic BP for 80 years old person and older is 150- 155 mm Hg. Patient will continue his home-scheduled lisinopril 30 mg PO daily, home-scheduled metoprolol 50 mg PO bid, and diltiazem 30mg PO q8 (01/26/2024, 4:00pm) on hospital discharge back to his home alone on 01/27/2024. Hyperlipidemia: Asymptomatic on home-scheduled atorvastatin 10 mg PO daily while in [facility]. Patient will continue this home-scheduled medication on hospital discharge back to his home alone on 01/27/2024. Cervical arthritis: Asymptomatic on home-scheduled gabapentin 100 mg PO bid while in [facility]. Patient will continue this home-scheduled medication on hospital discharge back to his home alone on 01/27/2024. BPH/Prostate cancer: Asymptomatic on home-scheduled tamsulosin 0.4 mg PO daily while in [facility]. Patient will continue this home-scheduled medication on ho spital discharge back to his home alone on 01/27/2024. VTE PPx: Patient received Eliquis 5 mg PO bid while in [facility]. Patient will continue this home-scheduled medication on hospital discharge back to his home alone on 01/27/2024. CODE STATUS: DNR/DNI. There were no adverse events noted with this hospitalization. Condition of patient remains fair. Discharge time, 35 minutes. Of this time period, 17 minutes were spent in coordinating patient's discharge on 01/27/2024. Admission HPI Per Admitting Provider Mr. Hooks is a pleasant 83-year-old male with PMH of hypertension, T2DM, hyperlipidemia, prostate cancer, BPH, asthma, PMR, gout. He presented to [facility] evening of 01/24 via EMS for new onset A fib with RVR. He reportedly felt weak yesterday, then when getting out of bed, he became lightheaded and lowered himself to the ground. He was too weak to get up on his own and called EMS. Per report from [facility], patient was in A fib with RVR in the 120- 130s on presentation. He had a head CT which revealed no acute process, CXR revealed cardiomegaly and mild central vascular congestion. No pericardial effusion noted on POCUS. He had an echocardiogram, report requested and still pending. Labs showed no significant electrolyte derangement or organ dysfuncti on. BNP elevated. He was started on heparin and Cardizem drip, after metoprolol IV was tried x 3 without improvement. Patient requested transfer to [facility]. At this time, patient denies chest pain, palpitations, orthopnea, dyspnea, cough, N/V/D, fever, chills, lightheadedness, dizziness, or numbness in his extremities. He reports chronic dysuria with frequency. He has converted to NSR in the 60s. He is very hard of hearing and had his friend/POA, Agapito, at bedside. No cardiac history to his knowledge and no history of A-fib either; he is on metoprolol as part of his anti-hypertensive regimen. Confirmed home medications and code status with patient and POA. Discharge Exam General: comfortable, coherent, cooperative. Wide awake and alert. Not confused, lethargic, or obtunded. Patient speaks in complete, fluent, and articulate sentences without pause, interruption, cough, or wheeze. HEENT: normocephalic, atraumatic. EOMI, PERRL. No nystagmus, gaze paresis, anisocoria, miosis, mydriasis, hyphema, chemosis, scleral icterus, conjunctivitis, or pterygium. No otorrorhea. No rhinorrhea. No pharyngeal discharge or exudate. Neck: suppler, no stridor, bruit, goiter, JVD, or HJR. Lymph: no cervical, supraclavicular, infraclavicular, axillary, epitrochlear, or inguinal adenopathy. Chest: symmetric rise and fall with respiration. Non-tender to palpation. Lungs: clear to auscultation and percussion. No audible expiratory wheeze, egophony, pectoriloquy, increase in tactile fremitus, or flatness/dullness to percussion at the bases. Heart: RRR, S1 and S2 noted. No S3 or S4 summation gallop. No tripartite friction rub. Grade II/ holo-systolic murmur @ right second intercostal space, radiating to the carotids, but not the axilla or back. Invariant in regards to the respiratory cycle. Abdomen: soft, non-tender, non-distended. No rebound, guarding, Black's sign, or organomegaly. Bowel sounds auscultated in all 4 quadrants. Extremities: no clubbing, cyanosis, or edema. 2+ pedal pulses bilaterally. Skin: no decubitus ulcer, exanthem, or enanthem. Neurology: alert and oriented in regards to person, place, and time. DTR+ and symmetric. 5/5 motor strength in all 4 extremities, both proximally and distally. No tremors, tics, or myoclonus. Urology: no thakur catheter. No urethral discharge. Discharge Plan Discharge Items Patient Disposition: Home - Self-Care Reason For Visit: ATRIAL FIBRILATION WITH RVR Discharge Diagnosis: Atrial fibrillation with RVR Condition on Discharge: Fair Health Concerns: None Activity: Resume your previous activity Non-emergency contact: Primary Care Provider Call non-emergency contact if: you have any medication questions Follow-up/Referrals: Juan Antonio Almonte MD [Primary Care Provider] - 01/29/24 9:00 am (Hospital follow up scheduled January 28 at 9:00) Diet: Carb Consistent or DM2, Heart Healthy, Low Fat and Low Sodium (2gm) Addtl Attending Provider Instructions: See your family doctor, Dr. Juan Antonio Almonte, within 3-5 days, for routine follow up visit on newly started diltiazem 30mg PO q8. Pending Studies at Discharge: No Stand-Alone Forms: My LaunchBit, Smoking Cessation Medications and DC Order Prescriptions: New diltiazem HCl 30 mg Tablet 30 mg PO Q8 Qty: 90 0RF Continued atorvastatin 10 mg tablet See Rx Instructions .ROUTE .COMPLEX Qty: 90 3RF Dose Instruction: Take 1 tablet by mouth once daily Rx Instructions: Take 1 tablet by mouth once daily tamsulosin 0.4 mg capsule 0.4 mg PO DAILY Qty: 90 3RF metoprolol succinate 100 mg tablet extended release 24 hr 50 mg PO BID Qty: 90 3RF Rx Instructions: 50 mg BID hydrocodone-acetaminophen 7.5-325 mg tablet 1 tab PO Q6H PRN (Reason: pain) Qty: 120 0RF Rx Instructions: ongoing therapy Eliquis 5 mg tablet 5 mg PO BID aspirin 81 mg tablet,delayed release (DR/EC) 81 mg PO DAILY Qty: 30 polyethylene glycol 3350 [Miralax] 17 gram/dose powder 17 g PO DAILY Qty: 510 5RF Rx Instructions: 1 capful in 12 ounces juice or other liquid po daily lisinopril 30 mg tablet 30 mg PO DAILY Qty: 90 3RF gabapentin 100 mg capsule 100 mg PO BID Qty: 60 2RF metformin 750 mg tablet extended release 24 hr 750 mg PO DAILY Rx Instructions: 1 po am Discontinued amlodipine 2.5 mg tablet See Rx Instructions .Route .COMPLEX Qty: 90 3RF Hold Instructions: Polyuria Patient Comments: ON HOLD BY PCP Rx Instructions: TAKE ONE TABLET BY MOUTH ONCE every morning Discharge Orders: Discharge Order (Routine); Ordered 01/27/24 Ordered By: Alex Goss/Other Patient Handouts: Managing Type 2 Diabetes Admission Data Admit Date/Time: 01/25/24 10:40 Attending Provider: Alex Hernandes Admit Provider: Quoc Freedman Primary Care Provider: Juan Antonio Almonte Other Providers: Mynor Martin; West Moore; Martinez Wright; Jose Armando Zapata; Mookie Nguyen; Girish Honeycutt Jr; Ron Bach; Svitlana Chauhan; Eliz Lepe; Doug Keith; Doug Blood; Oswaldo Hyde; Alecia Ramos; Juan Antonio Vázquez; Chey Vasquez; Hardeep Devi; Juan Antonio Goel; Anjel Vinson; Rad Tineo Hospital Stay Data Consultations 01/26/24 11:15 Consult Cardiology Routine Pending Results Patient Have Any Pending Studies at Discharge: No Discharge Instructions Given to Patient (Per Discharging Provider) See your family doctor, Dr. Juan Antonio Almonte, within 3-5 days, for routine follow up visit on newly started diltiazem 30mg PO q8. Total Time Total Time Spent Total Time Spent (In Minutes): Discharge time, 35 minutes. Of this time period, 17 minutes were spent in coordinating patient's discharge on 01/27/2024. Coding Level of Care Code 70431 INP/OBS DISCH >30 MIN Diagnoses Atrial fibrillation with RVR I48.91 Type 2 diabetes mellitus without complication, without long-term current use of insulin E11.9 Diabetes mellitus type: type 2 Diabetes mellitus senior living insulin use: without district agent use Diabetes mellitus complication status: without complication
--- NOTE | 2024-01-29 22:05 | Electrocardiogram Report ---
Test Reason : Blood Pressure : */* mmHG Vent. Rate : 125 BPM Atrial Rate : 141 BPM P-R Int : * ms QRS Dur : 134 ms QT Int : 356 ms P-R-T Axes : * -75 20 degrees QTcB Int : 513 ms Poor data quality, interpretation may be adversely affected Atrial fibrillation with rapid ventricular response Right bundle branch block Left anterior fascicular block Bifascicular block Abnormal ECG When compared with ECG of 25-Jan-2024 12:28, Atrial fibrillation has replaced Sinus rhythm Vent. rate has increased by 62 bpm Left anterior fascicular block is now Present Confirmed by Ron Bach ([id number]) on 01/29/2024 10:04:58 PM Referred By: Eboni Moon Confirmed By: Ron Bach
== END 2024-01-27 11:12 | disposition home or self-care (01) | DRG 309 ==
LOC: SUATTDRO 10:40 → 4W 10:40